=== PATIENT | female | born 1965 | race Hispanic/Latino ===

== ENCOUNTER 2019-10-22 04:40 | Emergency (ER) | payer SELFPAY ==
[~2019-10-22] VITALS: Ht 160 cm; Wt 102.1 kg
--- OUTSIDE RECORDS SUMMARY | 2019-10-22 04:43 | XMS REPORT ---
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 Allergies, Adverse Reactions, Alerts Allergy Name Allergy Type Status Severity Reaction(s) Onset Date Inactive Date Treating Clinician Comments No Known Allergies DA Active U 2019-05-16 00:00:00 No Known Allergies DA Active U 2013-02-22 00:00:00 Medications This patient has no known medications. Results Test Description Test Time Test Comments Text Results Atomic Results Result Comments B-TYPE NATRIURETIC PEPTIDE 2019-05-16 13:19:00 B-TYPE NATRIURETIC PEPTIDE (test code=BNP) 4.70 pgram/mL 0-100 BASIC METABOLIC [id number] 12:59:00* Test Item Value Reference Range Comments SODIUM (test code=NA) 140 mmol/L 136-145 POTASSIUM (test code=K) 4.2 mmol/L 3.5-5.1 CHLORIDE (test code=CL) 103.0 mmol/L 98-107 CARBON DIOXIDE (test code=CO2) 29.0 mmol/L 21-32 ANION GAP (test code=GAP) 12.2 10-20 GLUCOSE (test code=GLU) 120 mg/dL 74-106 BLOOD UREA NITROGEN (test code=BUN) 9 mg/dL 7-18 GLOMERULAR FILTRATION RATE (test code=GFR) > 60 mL/min >=60 Estimated GFR by using Modified MDRD formula.Chronic kidney disease is defined as either kidney damageor GFR <60 mL/min/1.73 m2 for >3 months. CREATININE (test code=CREAT) 0.80 mg/dL 0.55-1.02 Note change in reference range due to change in reagent. BUN/CREATININE RATIO (test code=BUN/CREA) 11.3 10-20 CALCIUM (test code=CA) 9.8 mg/dL 8.5-10.1 [id number] 12:59:00* Test Item Value Reference Range Comments TROPONIN-I (test code=TROPI) <0.015 ng/mL 0-0.045 BASIC METABOLIC [id number] 12:50:00* Test Item Value Reference Range Comments SODIUM (test code=NA) 140 mmol/L 136-145 POTASSIUM (test code=K) 4.2 mmol/L 3.5-5.1 CHLORIDE (test code=CL) 103.0 mmol/L 98-107 CARBON DIOXIDE (test code=CO2) mmol/L 21-32 ANION GAP (test code=GAP) 10-20 GLUCOSE (test code=GLU) mg/dL 74-106 BLOOD UREA NITROGEN (test code=BUN) mg/dL 7-18 GLOMERULAR FILTRATION RATE (test code=GFR) mL/min >=60 CREATININE (test code=CREAT) mg/dL 0.55-1.02 BUN/CREATININE RATIO (test code=BUN/CREA) 10-20 CALCIUM (test code=CA) mg/dL 8.5-10.1 [id number] 12:50:00* Test Item Value Reference Range Comments TROPONIN-I (test code=TROPI) ng/mL 0-0.045 CBC W/O [id number] 12:35:00* Test Item Value Reference Range Comments WHITE BLOOD CELL (test code=WBC) 8.0 K/mm3 4.5-12.5 RED BLOOD CELL (test code=RBC) 4.85 mill/mm3 3.7-5.2 HEMOGLOBIN (test code=HGB) 14.3 gram/dL 11.5-15.5 HEMATOCRIT (test code=HCT) 44.0 % 36.0-46.0 MEAN CELL VOLUME (test code=MCV) 90.7 fL 80-98 MEAN CELL HGB (test code=MCH) 29.5 picogram 27.0-33.0 MEAN CELL HGB CONCETRATION (test code=MCHC) 32.5 gram/dL 33.0-36.0 RED CELL DISTRIBUTION WIDTH (test code=RDW) 13.3 % 11.6-16.2 PLATELET COUNT (test code=PLT) 290 K/mm3 150-450 MEAN PLATELET VOLUME (test code=MPV) 9.4 fL 6.7-11.0 - XR CHEST 1 [id number] 12:02:00 FAX: Kirill Carrion DO [phone] [place]: St: REG FAX: Jonny Spencer DO Name: HE VIEIRA [facility] : 1965 Age/S: 54/F [address] [facility] Unit #: [id number] Loc: [place] [address] Phys: Jonny Spencer DO Acct: [id number] Dis Date: Status: REG ER PHONE #: [phone] Exam Date: 05/16/2019 1106 FAX #: [phone] Reason: Shortness of Breath EXAMS: CPT CODE: [id number] XR CHEST 1 V 10384 REASON FOR EXAM: Shortness of Breath Exam Order Date: 05/16/2019 10:44 AM Ordering M.DYolanda: Jonny Spencer DO PROCEDURE: - XR CHEST 1 V COMPARISON: 2 view chest x-ray February 24, 2008 FINDINGS: The lungs are clear. There is no pleural effusion or pneumothorax. Pulmonary vascularity is within normal limits. Cardiomediastinal silhouette is normal in size for technique. The mediastinal contours are within normal limits. Mild degenerative changes are present in the thoracic spine. The visualized upper abdomen is within normal limits. IMPRESSION: No acute cardiopulmonary process. Location: [facility] at 1202 Reported and signed by: Kel Wells MD CC: Kirill Long DO; Jonny Spencer DO Technologist: RT MARGARITO(Titi) Trnscrd Date/Time/By: 05/16/2019 (1285) : By: [email or web address] Orig Print D/T: S: 05/16/2019 (7997) PAGE 1 Signed Report
[2019-10-22] MEDS ORDERED: HYDROCODONE/APAP 5MG-325MG TAB PO ONE (05:00)
[2019-10-22] MEDS ORDERED: CLONIDINE HCL 0.1 MG TAB PO ONE (05:00)
[2019-10-22] MEDS ORDERED: KETOROLAC TROMETHAMINE 30 MG/ML VIAL IM ONE (05:00)
[2019-10-22] MEDS ORDERED: CLONIDINE HCL 0.1 MG TAB ONE (05:04)
[2019-10-22] MEDS ORDERED: KETOROLAC TROMETHAMINE 30 MG/ML VIAL ONE (05:04)
[2019-10-22] MEDS ORDERED: HYDROCODONE/APAP 5MG-325MG TAB ONE (05:05)
[2019-10-22 05:34] VITALS: BP 148/80
== END 2019-10-22 05:33 | disposition home or self-care (01) ==
LOC: FSED 04:40
DX: M25.512 Pain in left shoulder (principal); M54.12 Radiculopathy, cervical region; I10 Essential (primary) hypertension; E11.9 Type 2 diabetes mellitus without complications
CPT/HCPCS: 96372; 99283; J1885